=== PATIENT | female | born 1990 | race Caucasian/White ===

== ENCOUNTER 2019-07-04 22:23 | Emergency (ER) | payer OTHER ==
[~2019-07-04] VITALS: Ht 165.1 cm; Wt 46.7 kg
[~2019-07-04 22:23] MED LIST: BENADRYL25 MG PO; CALCIUM500 M1 PO; PRENATAL TABLE1 EAC4 PO; SEROQUEL 25 MG25 M1; TRAZODONE 150150 M1
[2019-07-04] MEDS ORDERED: SEROQUEL 25 MG25 M1 PO (22:38)
[2019-07-04] MEDS ORDERED: TRAZODONE 150150 M1 PO (22:38)
[2019-07-04] MEDS ORDERED: DIAZEPAM 5 MG5 MG PO (22:39)
[2019-07-04] MEDS ORDERED: NEURONTIN 300M300 M2 PO (22:39)
[2019-07-04] MEDS ORDERED: VENTOLIN HFA INH8 GM INH (22:40)
[2019-07-04 23:25] LABS: ABSOLUTE EOSINOPHILS 0.1 thou/uL (0.0-0.7); ABSOLUTE LYMPHOCYTES 2.2 thou/uL (0.8-5.3); ABSOLUTE MONOCYTES 0.7 thou/uL (0.0-1.2); ABSOLUTE NEUTROPHILS 3.9 thou/uL (1.6-8.1); BASOPHILS 0.4 %; EOSINOPHILS 2.1 %; HEMATOCRIT 40.9 % (37.0-47.0); HEMOGLOBIN 14.1 gm/dL (12.0-15.0); MCHC 34.4 g/dL (28.0-37.0); MONOCYTES 9.5 %; MPV 8.1 fl. (7.2-11.1); NUCLEATED RBCS 0 /100WBC; PLATELET COUNT* 216 thou/uL (150-400); RBC 4.26 mil/uL (4.20-5.00); RDW-CV 13.3 % (10.5-14.5)
[2019-07-04 23:32] LABS: CALCIUM 9.3 mg/dL (8.5-10.1); CREATININE 0.7 mg/dL (0.6-1.3); POTASSIUM 3.6 mmol/L (3.5-5.1)
[2019-07-04 23:37] LABS: ALBUMIN 4.3 g/dL (3.4-5.0); TOTAL BILIRUBIN 0.7 mg/dL (<0.1-1.0); TOTAL PROTEIN 8.5 g/dL (6.4-8.2)
[2019-07-04 23:40] LABS: INFLUENZA A ANTIGEN Negative (Negative); INFLUENZA B ANTIGEN Negative (Negative)
[2019-07-04 23:46] LABS: URINE BLOOD NEGATIVE (Negative); URINE CLARITY CLEAR; URINE COLOR YELLOW; URINE GLUCOSE-RANDOM NEGATIVE (Negative); URINE KETONES NEGATIVE (Negative); URINE LEUKOCYTES-REFLEX NEGATIVE (Negative); URINE NITRITE-REFLEX NEGATIVE (Negative); URINE PROTEIN NEGATIVE (Negative); URINE SPECIFIC GRAVITY 1.025 (1.005-1.030); URINE UROBILINOGEN 0.2 E.U./dl (0.2-1.0)
[2019-07-04 23:47] LABS: ICTOTEST (BILI CONFIRMATORY) Negative (Negative); URINE BILIRUBIN 1+ (Negative)
[2019-07-05] MEDS ORDERED: ZOFRAN ODT4 MG DISSOLVE (00:09)
[2019-07-05 00:49] VITALS: BP 95/53
== END 2019-07-05 00:49 | disposition home or self-care (01) ==
LOC: M.ERS 22:23
PROVIDERS: Emergency Medicine Emergency Medical Services
DX: B34.9 Viral infection, unspecified (principal); R11.2 Nausea with vomiting, unspecified; J45.909 Unspecified asthma, uncomplicated; F17.210 Nicotine dependence, cigarettes, uncomplicated

== ENCOUNTER 2019-09-25 15:19 | Emergency (ER) | payer OTHER ==
[~2019-09-25] VITALS: Ht 165.1 cm; Wt 48.5 kg
[~2019-09-25 15:19] MED LIST changes: +DIAZEPAM 5 MG5 MG PO; +NEURONTIN 300M300 M2 PO; +SEROQUEL 50 MG50 MG PO; +TRAZODONE 150150 M1 PO; +VENTOLIN HFA INH8 GM INH; +ZOFRAN ODT4 MG DISSOLVE
[2019-09-25] MEDS ORDERED: LAMICTAL 25 MG25 MG PO (15:33)
[2019-09-25 15:55] LABS: HEMATOCRIT 39.7 % (37.0-47.0); HEMOGLOBIN 13.8 gm/dL (12.0-15.0); MCH 33.6 pg (26.0-34.0); MCHC 34.8 g/dL (28.0-37.0); MCV 96.6 fL (80.0-100.0); MPV 7.7 fl. (7.2-11.1); NUCLEATED RBCS 0 /100WBC; PLATELET COUNT* 202 thou/uL (150-400); RBC 4.11 mil/uL (4.20-5.00); RDW-CV 13.4 % (10.5-14.5); WBC 8.7 thou/uL (4.0-11.0)
[2019-09-25 16:03] LABS: CALCIUM 8.6 mg/dL (8.5-10.1); CREATININE 0.9 mg/dL (0.6-1.3); POTASSIUM 4.1 mmol/L (3.5-5.1)
[2019-09-25 16:22] LABS: ABSOLUTE LYMPHOCYTES 0.8 thou/uL (0.8-5.3); ABSOLUTE MONOCYTES 0.1 thou/uL (0.0-1.2); ABSOLUTE NEUTROPHILS 7.8 thou/uL (1.6-8.1); PLATELET ESTIMATE ADEQUATE
[2019-09-25] MEDS ORDERED: NORCO 5-325 TA1 EAC1 PO (16:25)
[2019-09-25 16:43] VITALS: BP 121/70
== END 2019-09-25 16:45 | disposition home or self-care (01) ==
LOC: M.ERS 15:19
PROVIDERS: Family Medicine
DX: M79.671 Pain in right foot (principal); J45.909 Unspecified asthma, uncomplicated; F17.210 Nicotine dependence, cigarettes, uncomplicated; Z98.51 Tubal ligation status; Z90.49 Acquired absence of other specified parts of digestive tract